=== PATIENT | female | born 1995 | race Caucasian/White ===

== ENCOUNTER 2020-11-11 07:34 | Inpatient (IN) ==
--- NOTE | 2020-11-11 08:03 | History & Physical Report ---
Date of Service November 11, 2020 Assessment & Plan (1) Encounter for induction of labor: 25 y/o 40w7d here for eIOL. Routine . O pos. RI. GBS neg. - induction via pitocin, 2+2 - LR 125/hr - plan for epidural. consult anesthesiology. - plans to breastfeed - covid swab ordered (2) Supervision of normal first : Admission and Anticipated Discharge Date Admission Date: November 11, 2020 History of Present Illness Primary Care Provider: NO PCP Julia Nieves is a 25 y/o 40w7d (LMP) who presents for eIOL. Routine . inconsistent contractions q15min; + movement; - fluid loss; - bloody show Had regular appointments with OB. Labs: (04/02/20) Blood type: O pos Antibody screen: neg Hg: pending (today) Hct: pending (today) WBC: pending (today) Plt: pending (today) Rubella: immune RPR: nonreactive Gonorrhea: not detected Chlamydia: not detected HIV: neg HbSAg: neg GBS: neg (10/07/20) Other screens: 2 hr gtt nl x 2 akh low risk panorama akh GBS negative. ak Allergies Allergy/AdvReac Type Severity Reaction Status Date / Time No Known Allergies Allergy Verified 11/10/20 15:43 Home Medications Medication Instructions Recorded Confirmed Type prenat.vits,zina,pst-qftu-vdros 1 tab PO DAILY 03/25/20 11/11/20 History Patient History Medical History Varicella vaccination Surgical History H/O wisdom tooth extraction Family History Denies family history of Ovarian cancer Breast cancer Colorectal cancer Social History Smoking Status: Never smoker Second Hand Exposure: No; Do You Dip or Chew Tobacco: No; Tobacco Cessation Education Requested by Patient: No Hx Alcohol Use: No Hx Substance Use: No Preferred Language: Cape Verdean Communication Ability: Effective Industrial Controls Technician Required: No Beliefs That Will Affect Care: None marital status: Single marital status details: randy Salcido (24) [phone] Current Living Situation: Significant Other Current Living Situation Comment: lives with Randy current occupational status: employed current occupation: [employer] Other Information That Helps Us Care for You: No Feels Safe at Home: Yes Safety Concerns: Feels Safe At This Time Assistive Devices: Glasses Review of Systems Denies fever, chills, sweats Denies shortness of breath, difficulty breathing, chest pain, palpitations, chest pressure. Denies breast pain. Denies dysuria. Denies headache or changes in vision. Denies nausea/vomiting. Denies numbness, tingling, weakness. Denies calf pain. Denies mood problems. Physical Exam Physical Exam: General: Alert, oriented. No acute distress. Cardiac: Regular rate and rhythm, no murmurs/rubs/gallops. Respiratory: Clear to auscultation bilaterally, no wheezes/rales/rhonchi. No increased work of breathing. Symmetrical chest rise. No respiratory distress. Abdomen: Gravid; Nontender Pelvic: Dilation 4cm; Effacement 80%; Station -2. Soft, mid. EFW 7-8. Exam per Dr. Brunson. Lower Extremities: No lower extremity edema or swelling. No deep calf pain. Autumn's negative bilaterally Results & Data ([facility]) Vital Signs (Past 12 Hours) Vital Signs Pulse BP 11/11/20 07:44 90 126/84 Code Status & VTE Plan Code Status full VTE Prophylaxis Plan VTE Prophylaxis will be ordered: No Monitoring External Monitor External FHT and external uterine monitors used; Category I tracing; moderate FHT variability. Baseline 140bpm. No late or variable decelerations. Tocodynamometer External toco. Contractions q6-8min. Supervising Physician Co-Signing Physician Notes Resident Physician Supervision Note: I interviewed and examined the patient. Discussed with Dr. Dr. Grace and agree with findings and plan as documented in the note. Any exceptions or clarifications are listed here: PLan induction for postdates, covid negative earlier. PLan pitocin, arom when indicated, epidural on demand. Documented By: Adela Brunson MD, FACOG Resident Activity Tracking Resident Involvement: Resident Care Provided Care Provided: OB Delivery
[2020-11-11] MEDS ORDERED: OXYTOCIN 30 UNITS/500 ML BAG IV PRN ×3 (08:39→18:04)
[2020-11-11] MEDS: LACTATED RINGER'S 1,000 ML IV PRN ×2 (09:26→12:08)
[2020-11-11 10:30] LABS: Hematocrit (blood only) 35.3 % (37-47); Hemoglobin 12.2 g/dL (12.0-16.0); Mean Corpuscular Hemoglobin 31.3 pg (25-34); Mean Corpuscular Hgb Conc 34.6 g/dL (32-36); Mean Corpuscular Volume 90.5 fL (80-100); Mean Platelet Volume 10.8 fL (7.4-10.4); Platelet Count 320 K/uL (130-400); RDW Coefficient of Variation 13.3 % (11.5-14.5); White Blood Count 13.53 K/uL (4.8-10.8)
[2020-11-11] MEDS ORDERED: SODIUM CHLORIDE 0.9% PF INJ 10 ML VIAL ONE (11:29)
[2020-11-11] MEDS ORDERED: ePHEDrine sulfate 50 MG/ML AMP ONE (11:29)
[2020-11-11] MEDS ORDERED: fentaNYL citrate PF 100 MCG/2 ML VIAL ONE (11:30)
[2020-11-11] MEDS ORDERED: BUPIVACAINE 0.25% PF 30 ML VIAL ONE (11:30)
[2020-11-11] MEDS ORDERED: fentaNYL 2MCG/ML ROPIVACAINE 1.25MG/ML 100 ML BAG EPI ONE (11:31)
--- NOTE | 2020-11-11 11:49 | Anesthesiology Consultation ---
Date of Service November 11, 2020 Assessment & Plan (1) Encounter for pre-operative examination: Chart Review Chart Review: Acceptable Risk for Labor Epidural History Height/Weight Height: 5 ft 2 in Weight: 92.533 kg Allergies Allergy/AdvReac Type Severity Reaction Status Date / Time No Known Allergies Allergy Verified 11/10/20 15:43 Medications Home Medications Medication Instructions Recorded Confirmed Last Taken prenat.vits,zina,guq-uwka-ewciz 1 tab PO DAILY 03/25/20 11/11/20 11/10/20 20:00 Active Medications Generic Name Dose Route Start Last Admin Trade Name Freq PRN Reason Stop Dose Admin Oxytocin 30 units in 500 mls @ 8 mls/hr 11/11/20 08:39 11/11/20 11:00 Pitocin IV 11/13/20 08:38 0.48 units/hr .Q24H PRN 8 mls/hr Labor Induction/Augmentation Titration Protocol 0.48 UNITS/HR Lactated Ringer's 1,000 mls @ 125 mls/hr 11/11/20 08:39 11/11/20 11:25 Lr IV 11/13/20 08:38 999 mls/hr .Q8H PRN Infusion L&D Protocol Protocol Past Medical History Medical History Varicella vaccination Past Family History Family History Denies family history of Ovarian cancer Breast cancer Colorectal cancer Past Surgical History Surgical History H/O wisdom tooth extraction Social History Smoking Status: Never smoker Do You Dip or Chew Tobacco: No Hx Alcohol Use: No Hx Substance Use: No substance use type: does not use Physical Exam Vital Signs Last Vital Signs Temp 37.0 C 11/11/20 09:32 Pulse 75 11/11/20 11:47 Resp 20 11/11/20 09:32 BP 161/97 H 11/11/20 11:34 Testing Laboratory Results 11/11/20 08:47
[2020-11-11] MEDS ORDERED: ONDANSETRON INJ 2 MG/ML 2 ML VIAL IV PRN (12:22)
[2020-11-11] MEDS ORDERED: ePHEDrine sulfate 50 MG/ML AMP IV PRN (12:22)
[2020-11-11] MEDS ORDERED: fentaNYL 2MCG/ML ROPIVACAINE 1.25MG/ML 100 ML BAG EPI PRN (12:22)
[2020-11-11] MEDS ORDERED: NALOXONE HCL 1 MG in SODIUM CHLORIDE 0.9% 1,000 ML IV PRN (12:22)
[2020-11-11] MEDS ORDERED: NALOXONE HCL 0.4 MG/1 ML VIAL/CARP IV PRN (12:22)
--- NOTE | 2020-11-11 15:40 | Labor Progress Brief Note ---
Date of Service November 11, 2020 Subjective Reason For Note: Routine Evaluation having pressure. Assessment & Plan (1) Encounter for induction of labor: begin 2nd stage. fhts categ 2. pt aware i am covering care for Dr. Brunson at this time. Admission and Anticipated Discharge Date Admission Date: November 11, 2020 Physical Exam Constitutional: WD/WN, vitals as above Genitourinary: Manual OB Exam: + cervical dilation (lip reduced with arom ), + cervical effacement 100%, + station + 2 and + amniotic fluid (AROM) meconium OB Exam Monitor Tracing: + external FHT monitor used (140 mod variability, ), + external uterine monitor used (q2), + category II and + variable decelerations Results & Data ([facility]) Vital Signs (Past 12 Hours) Vital Signs Temp Pulse Resp BP Pulse Ox 11/11/20 15:34 59 L 142/83 H 11/11/20 15:32 60 98 11/11/20 15:27 92 H 100 11/11/20 15:26 57 L 93 11/11/20 15:22 67 98 11/11/20 15:21 66 93 11/11/20 15:19 54 L 144/96 H 11/11/20 15:17 75 99 11/11/20 15:12 56 L 98 11/11/20 15:07 60 99 11/11/20 15:04 60 163/92 H 11/11/20 15:02 100 H 100 11/11/20 14:57 73 98 11/11/20 14:52 63 97 11/11/20 14:51 88 93 11/11/20 14:49 66 173/97 H 11/11/20 14:47 62 97 11/11/20 14:42 95 H 99 11/11/20 14:37 76 99 11/11/20 14:36 98.2 F 20 11/11/20 14:34 61 134/86 11/11/20 14:32 67 99 11/11/20 14:29 68 94 11/11/20 14:27 71 97 11/11/20 14:22 70 97 11/11/20 14:19 68 147/87 H 93 11/11/20 14:17 83 98 11/11/20 14:16 18 11/11/20 14:12 84 97 11/11/20 14:07 84 95 05 14:05 85 137/92 05 14:02 79 98 0519 14:01 18 05 13:58 87 94 05 13:57 70 97 05 13:52 100 H 97 11/11/20 13:49 58 L 133/82 05 13:47 79 96 05 13:45 82 20 94 05 13:42 93 H 97 05 13:40 88 92 05 13:37 86 95 05 13:33 71 135/92 05 13:32 84 94 05 13:31 20 05 13:27 80 95 05 13:26 88 94 05 13:22 78 96 05 13:19 83 135/84 05 13:17 86 96 05 13:16 20 05 13:12 85 97 05 13:11 80 94 05 13:07 84 96 05 13:03 77 127/84 05 13:02 84 95 05 13:01 20 05 12:57 79 95 05 12:52 87 96 05 12:48 84 128/85 05 12:47 85 97 05 12:46 20 05 12:43 87 130/82 05 12:42 78 96 05 12:39 75 135/85 05 12:37 92 H 96 11/11/20 12:33 85 130/88 05 12:32 94 H 97 11/11/20 12:31 83 20 133/85 05 12:29 80 129/85 05 12:27 84 133/85 97 05 12:25 60 135/89 05 12:23 63 132/87 05/ 12:22 73 97 05 12:21 59 L 145/90 H 11/11/20 12:17 61 98 05 12:16 20 11/11/20 12:12 87 100 11/11/20 12:07 92 H 100 11/11/20 12:02 75 98 11/11/20 12:00 20 11/11/20 11:57 88 99 11/11/20 11:52 91 H 98 11/11/20 11:47 75 98 11/11/20 11:34 80 161/97 H 11/11/20 10:35 78 140/88 11/11/20 09:32 98.6 F 20 11/11/20 09:31 85 126/84 11/11/20 07:46 98.4 F 90 20 126/84 11/11/20 07:44 90 126/84 Coding Level of Care Code None Diagnoses Encounter for induction of labor Z34.90
--- NOTE | 2020-11-11 17:59 | Anesthesia Procedure Note ---
Date of Service November 11, 2020 Anesthesia Post Epidural Note Vital Signs Vital Signs: Temp Pulse Resp BP Pulse Ox 36.8 C 100 H 20 132/78 99 11/11/20 14:36 11/11/20 17:49 11/11/20 14:36 11/11/20 17:49 11/11/20 17:38 Pain Intensity Lower Abdomen: Pain Intensity: 10 Notes Mental Status: alert / awake / arousable and participated in evaluation Nausea / Vomiting: adequately controlled Pain: adequately controlled Airway Patency, RR, SpO2: stable & adequate BP & HR: stable & adequate Hydration State: stable & adequate Neuraxial Anesthesia: was administered and sensory block is resolving Anesthetic Complications: no major complications apparent Epidural: Removed without complications and With tip intact
[2020-11-11] MEDS ORDERED: ACETAMINOPHEN 325 MG TAB PO PRN (18:04)
[2020-11-11] MEDS ORDERED: oxyCODONE/ACETAMINOPHEN 5mg/325mg TAB PO PRN (18:04)
--- NOTE | 2020-11-11 18:07 | Delivery Summary ---
Vaginal Delivery Summary Date of Service November 11, 2020 Vaginal Delivery Summary and 2nd Degree LAC The patient dilated to complete and pushed to deliver a viable male infant Apgars 8 and 9 via over 2nd degree perineal laceration. Mouth and nose bulb suctioned at perineum. Shoulders and body delivered with ease. Infant was vigorous and crying at . Cord clamped at 30 seconds of life and to maternal abdomen where the cord was then doubly clamped and cut. Placenta delivered spontaneously and intact, three-vessel cord. Hemostasis achieved with dilute pitocin and uterine massage and drainage of the bladder for approximately 250 cc under sterile conditions. Laceration repaired in usual fashion in layers with 3-0 vicryl. Periclitoral laceration with bleeding asnd reapproximated with 4-0 vicryl for excellent hemostasis. Cervix and sulci intact. EBL 300 cc. Mother and baby stable recovery. [facility] [place] Vaginal Delivery Charge Vaginal Delivery Codes: 83229 global code for the antepartum, delivery, and post- Delivery Type Details: and 2nd Degree LAC
[2020-11-11] MEDS ORDERED: HYDROCORTISONE ACETATE 25 MG SUPP PR PRN (18:20)
[2020-11-11] MEDS ORDERED: BENZOCAINE 20% SPRY 85 APPLN/85 GM CAN EXT PRN (18:20)
[2020-11-11] MEDS ORDERED: DIPHTHERIA/TETANUS/PERTUSSIS Vaccine (Tdap, Age 7+yrs) 0.5mL SYR/VL IM ONE (18:20)
[2020-11-11] MEDS ORDERED: SUPERCREAM 0.870% 15 GM JAR EXT PRN (18:20)
[2020-11-11] MEDS: OXYTOCIN 20 UNITS in LACTATED RINGER'S 1,000 ML IV SCH (19:18)
[2020-11-11] MEDS: DOCUSATE SODIUM 100 MG CAP PO SCH (21:09)
[2020-11-11] MEDS: IBUPROFEN 600 MG TAB PO PRN (22:39)
[2020-11-12] MEDS: IBUPROFEN 600 MG TAB PO PRN ×3 (04:27→23:38)
[2020-11-12 06:22] LABS: Hematocrit (blood only) 30.6 % (37-47); Hemoglobin 10.5 g/dL (12.0-16.0)
--- NOTE | 2020-11-12 07:06 | Obstetrical Progress Note ---
Date of Service <Jeffery Grace MD - Last Filed: 11/12/20 07:25> November 12, 2020 Assessment & Plan <Jeffery Grace MD - Last Filed: 11/12/20 07:25> (1) state: 25 y/o o 40w7d who is s/p on 11/11/20, PPD1. RI. GBS neg. - Doing well, meeting PP milestones - H/H appropriate - HR 90s, acceptable. delivered yesterday evening - continue ambulation, assistance w/ - hemorrhoid cream - Tentative dispo 11/11/20 Subjective <Jeffery Grace MD - Last Filed: 11/12/20 07:25> Ambulation: ambulating normally Voiding: no voiding problems Passing Gas:: Yes Diet Tolerance:: regular diet Lochia:: Small Feeding Type:: breast feeding Current Pain Level(1-10): 2 Will start pumping since not much output via . Review of Systems Denies fever, chills, sweats Denies shortness of breath, chest pain, palpitations. Denies breast pain. Denies dysuria. Denies headache or changes in vision. Denies nausea/vomiting. Denies numbness, tingling, weakness. + hemorrhoids Physical Exam <Jeffery Grace MD - Last Filed: 11/12/20 07:25> General: Alert, oriented. No acute distress. Cardiac: Regular rate and rhythm, no murmurs/rubs/gallops. Respiratory: Clear to auscultation bilaterally, no wheezes/rales/rhonchi. No respiratory distress. Abdomen: , soft, nontender. Uterus: Uterine fundus firm, palpable to right of umbilicus. Lower Extremities: No lower extremity edema or swelling. No deep calf pain. Autumn's negative bilaterally. Results & Data ([facility]) <Jeffery Grace MD - Last Filed: 11/12/20 07:25> Vital Signs (Past 12 Hours) Vital Signs Temp Pulse Pulse Resp BP BP Pulse Ox 11/12/20 04:15 36.8 C 93 H 16 116/75 11/11/20 23:50 37.1 C 97 H 16 113/71 99 11/11/20 21:00 37.0 C 99 H 18 127/84 98 11/11/20 20:03 101 H 127/81 11/11/20 19:49 109 H 129/75 11/11/20 19:33 113 H 131/83 11/11/20 19:18 96 H 132/81 11/11/20 19:04 89 133/78 Medications Administered <Adela Brunson MD, FACOG - Last Filed: 11/12/20 07:49> Co-Signing Physician Notes Resident Physician Supervision Note: I interviewed and examined the patient. Discussed with Dr. Grace and agree with findings and plan as documented in the note. Any exceptions or clarifications are listed here: Doing well, PPD 0/1. Delivered later in the evening yesterday. Recommend d/c tomorrow am as primip and first baby. She is agreeable. Documented By: Adela Brunson MD, FACOG
[2020-11-12] MEDS: DOCUSATE SODIUM 100 MG CAP PO SCH ×2 (08:06→20:14)
[2020-11-12] MEDS: PRENATAL VITAMIN 1 TAB PO SCH (08:06)
[2020-11-12] MEDS: OXYTOCIN 20 UNITS in LACTATED RINGER'S 1,000 ML IV SCH (19:20)
--- NOTE | 2020-11-13 06:20 | Obstetrical Progress Note ---
Date of Service <Jeffery Grace MD - Last Filed: 11/13/20 07:21> November 13, 2020 Assessment & Plan <Jeffery Grace MD - Last Filed: 11/13/20 07:21> (1) state: 25 y/o o 40w7d who is s/p on 11/11/20, PPD2. RI. GBS neg. - Doing well, meeting PP milestones - 11/12 H/H appropriate. No pending labs. - continue ambulation, assistance w/ - hemorrhoid cream - dispo today, instructions reviewed - 6 wk f/u Subjective <Jeffery Grace MD - Last Filed: 11/13/20 07:21> Ambulation: ambulating normally Voiding: no voiding problems Passing Gas:: Yes Diet Tolerance:: regular diet Lochia:: Small Feeding Type:: breast feeding (pumping. plans to exclusively pump) Current Pain Level(1-10): 2 No complaints. Feels ready for home. Review of Systems Denies fever, chills, sweats Denies shortness of breath, chest pain, palpitations. Denies breast pain. Denies dysuria. Denies headache or changes in vision. Denies nausea/vomiting. Denies numbness, tingling, weakness. Denies calf pain. Denies mood complaints. Physical Exam <Jeffery Grace MD - Last Filed: 11/13/20 07:21> General: Alert, oriented. No acute distress. Cardiac: Regular rate and rhythm, no murmurs/rubs/gallops. Respiratory: Clear to auscultation bilaterally, no wheezes/rales/rhonchi. No respiratory distress. Abdomen: , soft, nontender. Uterus: Uterine fundus firm, palpable to right of umbilicus, 0.5cm below. Lower Extremities: No lower extremity edema or swelling. No deep calf pain. Autumn's negative bilaterally. Results & Data ([facility]) <Jeffery Grace MD - Last Filed: 11/13/20 07:21> Vital Signs (Past 12 Hours) Vital Signs Temp Pulse Resp BP Pulse Ox 11/12/20 23:30 36.8 C 86 18 126/87 98 11/12/20 19:45 36.9 C 90 18 117/78 98 Medications Administered <Rosalinda Randall MD, FACOG - Last Filed: 11/13/20 08:47> Co-Signing Physician Notes Resident Physician Supervision Note: I was present with Dr. Grace during the history and exam. I discussed the case with the resident and agree with the findings and plan as documented in the note. Any exceptions or clarifications are listed here: doing well and ready to go home ff 2 down nt, ext nt calves, instructions reviewed, plan 6wk pp check. denies other ?s. rh pos, ri, breastpumping. Documented By: Rosalinda Randall MD, FACOG
[2020-11-13] MEDS: IBUPROFEN 600 MG TAB PO PRN (08:40)
[2020-11-13] MEDS: PRENATAL VITAMIN 1 TAB PO SCH (08:40)
[2020-11-13] MEDS: DOCUSATE SODIUM 100 MG CAP PO SCH (08:40)
== END 2020-11-13 12:55 | disposition home or self-care (01) ==
LOC: 4S1 07:34 → 4S2 21:03

== ENCOUNTER 2022-10-04 08:34 | Inpatient (IN) ==
[2022-10-04] MEDS ORDERED: LIDOCAINE 1% LOCAL 20 ML VIAL INFIL PRN (08:49)
[2022-10-04] MEDS ORDERED: OXYTOCIN 30 UNITS/500 ML BAG IV PRN ×2 (08:49→11:46)
--- NOTE | 2022-10-04 08:51 | History & Physical Report ---
Date of Service October 04, 2022 Assessment & Plan (1) Supervision of normal intrauterine in multigravida: (2) Normal labor: Plan admit. desires epidural. once comfortable , then arom. Plan . Fetus category one. History of Present Illness Chief Complaint: contractions Primary Care Provider: NO PCP Patient is a 27yowf with iup at39 6/7 weeks who presents to labor and delivery with worsening contractions. no lof/vb. +fm. Has been bowen for several days but worsened this am. Seen in the office yesterday and 4cm and Delivery Plans left ovarian cyst simple. - resolved at 30wk OB Labs: Blood Type O Positive 02/24/22 Antibody Screen NEGATIVE 02/24/22 Hemoglobin 12.2 g/dl (12.0-16.0) 07/13/22 Hematocrit 34.2 % (34.1-44.9) 07/13/22 Mean Corpuscular Volume 84.9 fL (80.0-100.0) 02/24/22 Platelet Count 353 K/uL (130-400) 02/24/22 Rubella IgG Antibody Immune (Immune) 02/24/22 Rapid Plasma Reagin Nonreactive (Nonreactive) 02/24/22 Hepatitis B Surface Antigen Neg (Neg) 04/02/20 Hepatitis B Surface Antigen. NON-REACTIVE (NON-REACTIVE) 02/24/22 Hepatitis C Antibody (EIA) NON-REACTIVE (NON-REACTIVE) 02/24/22 HIV (1&2) Ab and P24 Ag, 4th Gener Neg (Neg) 04/02/20 HIV (1&2) Ag and Ab Confirmation NON-REACTIVE (NON-REACTIVE) 02/24/22 Glucose 1 Hour 50 gm Load 102 mg/dl (70-130) 07/13/22 OB Optional Labs: Chlamydia trachomatis RNA NOT DETECTED (NOT DETECTED) 02/24/22 Neisseria gonorrhoeae RNA NOT DETECTED (NOT DETECTED) 02/24/22 Thyroid Stimulating Hormone (TSH) 1.670 uIu/ml (0.300-4.500) 09/05/19 Labs Reviewed: Declines cf/sma--mln gbs negative Allergies Allergy/AdvReac Type Severity Reaction Status Date / Time No Known Allergies Allergy Verified 10/03/22 13:48 Home Medications Medication Instructions Recorded Confirmed Type prenat.vits,zina,ztc-sull-rzyqg 1 tab PO DAILY 03/25/20 10/04/22 History Patient History Medical History (Updated 10/04/22 @ 08:54 by Adela Brunson MD, FACOG) Abdominal pain affecting Varicella vaccination Surgical History H/O wisdom tooth extraction Family History Denies family history of Ovarian cancer Breast cancer Colorectal cancer Social History Smoking Status: Never smoker Second Hand Exposure: No; Hx Alcohol Use: No Hx Substance Use: No Preferred Language: Bermudian Communication Ability: Effective Vocational Adviser Required: No Beliefs That Will Affect Care: None marital status: Single marital status details: Nathaniel Salcido (26) [phone] Current Living Situation: Spouse Current Living Situation Comment: lives with spouse, son, 3 dogs, 1 cat, spouse to change litter. current occupational status: employed current occupation: [employer] Feels Safe at Home: Yes Assistive Devices: Glasses OB History Past Pregnancies Del. Date GA wks Lbr Lgth wt Sex Type del Anes Place Del Prov ? Comment 11/11/20 41 7lb 5.1oz M Epi dural [facility] Dr. Randall No [employer] History noncontributory Physical Exam Constitutional: WD/WN, vitals as above Gastrointestinal (Abdomen): soft, gravid, nt Psychiatric: A+Ox3, euthymic affect Genitourinary: cx--6/90/-2 [id number] efm--130s wtih mod variability, accels to 150s,, no decels Results & Data Vital Signs (Past 12 Hours) Vital Signs Pulse BP 10/04/22 08:38 71 150/93 H Coding Level of Care Code None Diagnoses Supervision of normal intrauterine in multigravida Z34.80 Normal labor O80; Z37.9
[2022-10-04] MEDS: LACTATED RINGER'S 1,000 ML IV PRN ×2 (08:55→10:40)
[2022-10-04 09:17] LABS: Hematocrit (blood only) 34.5 % (37.0-47.0); Mean Corpuscular Hemoglobin 29.6 pg (25.0-34.0); Mean Corpuscular Hgb Conc 34.8 g/dL (32.0-36.0); Mean Corpuscular Volume 85.2 fL (80.0-100.0); Platelet Count 338 K/uL (130-400); RDW Coefficient of Variation 12.2 % (11.5-14.5); RDW Standard Deviation 37.6 fL (36.4-46.3); Red Blood Count 4.05 M/uL (4.20-5.40); White Blood Count 13.54 K/ul (4.8-10.8)
[2022-10-04] MEDS ORDERED: fentaNYL 2MCG/ML ROPIVACAINE 1.25MG/ML 100 ML BAG EPI PRN (09:20)
[2022-10-04] MEDS ORDERED: ePHEDrine sulfate 50 MG/ML AMP IV PRN (09:20)
[2022-10-04] MEDS ORDERED: NALOXONE HCL 0.4 MG/1 ML VIAL/CARP IV PRN (09:20)
[2022-10-04] MEDS ORDERED: NALOXONE HCL 1 MG in SODIUM CHLORIDE 0.9% 1000ML 1,000 ML IV PRN (09:20)
[2022-10-04] MEDS ORDERED: ePHEDrine sulfate 50 MG/ML AMP ONE (09:20)
[2022-10-04] MEDS ORDERED: NALBUPHINE HCL INJ 10 MG/ML AMP IV PRN (09:20)
[2022-10-04] MEDS ORDERED: fentaNYL citrate PF 100 MCG/2 ML VIAL ONE (09:20)
[2022-10-04] MEDS ORDERED: diphenhydrAMINE 50 MG/ML VIAL IV PRN (09:20)
--- NOTE | 2022-10-04 09:20 | Anesthesiology Consultation ---
Date of Service October 04, 2022 Assessment & Plan (1) Encounter for pre-operative examination: Chart Review Chart Review: Patient NOT seen in Pre Admission Testing and Acceptable Risk for Labor Epidural Consults Requested none History Allergies Allergy/AdvReac Type Severity Reaction Status Date / Time No Known Allergies Allergy Verified 10/03/22 13:48 Medications Home Medications Medication Instructions Recorded Confirmed Last Taken prenat.vits,zina,szn-uqpp-crckk 1 tab PO DAILY 03/25/20 10/04/22 09/27/22 Active Medications Generic Name Dose Route Start Last Admin Trade Name Freq PRN Reason Stop Dose Admin Lactated Ringer's 1,000 mls @ 125 mls/hr 10/04/22 08:49 10/04/22 08:55 Lr IV 10/06/22 08:48 999 mls/hr .Q8H PRN Administration L&D Protocol Protocol Past Medical History Medical History Abdominal pain affecting Varicella vaccination Past Family History Family History Denies family history of Ovarian cancer Breast cancer Colorectal cancer Past Surgical History Surgical History H/O wisdom tooth extraction Social History Smoking Status: Never smoker Hx Alcohol Use: No Hx Substance Use: No substance use type: does not use Physical Exam Vital Signs Last Vital Signs Pulse 84 10/04/22 09:09 BP 131/93 10/04/22 09:09 Testing Laboratory Results 10/04/22 09:01
[2022-10-04] MEDS ORDERED: fentaNYL 2MCG/ML ROPIVACAINE 1.25MG/ML 100 ML BAG EPI ONE (09:21)
[2022-10-04] MEDS ORDERED: LIDOCAINE 2%/EPINEPHRINE 1:200,000 20 ML PF ONE (09:21)
[2022-10-04] MEDS ORDERED: SODIUM CHLORIDE 0.9% PF INJ 10 ML VIAL ONE (09:21)
[2022-10-04] MEDS ORDERED: BUPIVACAINE 0.25% PF 30 ML VIAL ONE (09:21)
[2022-10-04 09:33] LABS: Alanine Aminotransferase 7 U/L (7-52); Albumin Globulin Ratio 1.2 (0.9-2); Albumin Level 3.4 gm/dl (3.4-5.0); Alkaline Phosphatase 159 U/L (34-104); Anion Gap 9 (3-11); Aspartate Aminotransferase 11 U/L (13-39); BUN Creatinine Ratio 8.5 (10-20); Bilirubin,Total 0.4 mg/dl (0.2-1.0); Blood Urea Nitrogen 4 mg/dl (6-23); Calcium 9.5 mg/dl (8.6-10.3); Carbon Dioxide 20 mmol/L (21-32); Chloride 109 mmol/L (98-107); Creatinine Clr Calc Pharmacy 183.3 ml/min; Est GFR (African American) > 150.0 ml/min; Est GFR (Non-African American) 137.3 ml/min; Globulin 2.8 gm/dl (2.5-4.0); Glucose 84 mg/dl (70-99(Fasting)); Potassium 3.5 mmol/L (3.5-5.1); Sodium 138 mmol/L (136-145); Total Protein 6.2 gm/dl (6.0-8.3)
--- NOTE | 2022-10-04 10:42 | Labor Progress Brief Note ---
Date of Service October 04, 2022 Subjective comfortable after epidural Assessment & Plan (1) Normal labor: Plan expectant management. fetus category one. anticipate . Admission and Anticipated Discharge Date Admission Date: October 04, 2022 Physical Exam Physical Exam: cx--7/100/-2 arom--clear toco--q2-3 min efm--130s with mod variability, accels to 150s no decels Results & Data Vital Signs (Past 12 Hours) Vital Signs Pulse BP Pulse Ox 10/04/22 10:06 65 121/84 10/04/22 10:35 96 10/04/22 10:35 73 10/04/22 10:32 76 10/04/22 10:32 125/82 10/04/22 10:30 97 10/04/22 10:30 86 10/04/22 10:25 96 10/04/22 10:25 80 10/04/22 10:20 95 10/04/22 10:20 82 10/04/22 10:18 82 10/04/22 10:18 123/81 10/04/22 10:15 97 10/04/22 10:15 81 10/04/22 10:10 96 10/04/22 10:10 73 10/04/22 10:01 65 10/04/22 10:01 121/84 10/04/22 09:59 100 10/04/22 09:59 71 10/04/22 09:54 98 10/04/22 09:54 75 10/04/22 09:49 99 10/04/22 09:49 71 10/04/22 09:46 65 10/04/22 09:46 118/81 10/04/22 09:44 99 10/04/22 09:44 74 10/04/22 09:43 71 10/04/22 09:43 126/90 10/04/22 09:39 99 10/04/22 09:39 71 10/04/22 09:40 64 10/04/22 09:40 130/87 10/04/22 09:37 80 10/04/22 09:37 135/92 10/04/22 09:34 100 10/04/22 09:34 80 10/04/22 09:34 76 10/04/22 09:34 134/91 10/04/22 09:30 69 10/04/22 09:30 138/101 H 10/04/22 09:29 100 10/04/22 09:29 70 10/04/22 09:24 100 10/04/22 09:24 78 10/04/22 09:19 71 10/04/22 09:19 125/89 10/04/22 09:09 84 10/04/22 09:09 131/93 10/04/22 08:59 74 10/04/22 08:59 129/91 10/04/22 08:38 71 150/93 H Coding Level of Care Code None Diagnoses Normal labor O80; Z37.9
[2022-10-04] MEDS ORDERED: bisacodyL 10 MG SUPP PR PRN (11:46)
[2022-10-04] MEDS ORDERED: ACETAMINOPHEN 325 MG TAB PO PRN (11:46)
[2022-10-04] MEDS ORDERED: BENZOCAINE 20% AER SPR 82.5 GM CAN EXT PRN (11:46)
[2022-10-04] MEDS ORDERED: HYDROCORTISONE ACETATE 25 MG SUPP PR PRN (11:46)
[2022-10-04] MEDS ORDERED: DIPHTHERIA/TETANUS/PERTUSSIS 0.5mL SYR/VIAL (Age 7+yrs) IM ONE (11:46)
--- NOTE | 2022-10-04 12:02 | Delivery Summary ---
Vaginal Delivery Summary Date of Service October 04, 2022 Vaginal Delivery Summary and 2nd Degree LAC Pre-operative Diagnosis: at 39 6/7 weeks active labor Post-operative Diagnosis: same Procedure: epidural arom second degree laceration with repair EBL: 300cc Anesthesia: epidural Procedure: The patient presented to labor and delivery in active labor. underwent epidural and arom for clear fluid. The patient was shortly thereafter straight cathed and had a decel to the 70s. Was checked before cath and was 8cm. The patient was turned side to side and into knee chest. Was found to be c/c/+1. The patient was turned to her back and then pushed for 3 contractions to deliver a viable male in doa position with a Ritgen maneuver. The rest of the was then delivered without difficulty after reducing a loose nuchal cord. The baby was immediately vigorous. The nose and mouth were bulb suctioned and the was placed in the maternal abdomen for drying and attention. Cord was clamped and cut at one minute of life. Cord blood and segment obtained. Placenta delivered spontaneous, intact with a three vessel cord. Cervix/sulci/rectum were intact. A second degree perineal laceration was repaired in the normal standard fashion. Hemostasis obtained with dilute pitocin and fundal massage. Apgars were 8/9. Mother and baby doing well at the end of the delivery. [facility] [place] Vaginal Delivery Charge Delivery Type Details: and 2nd Degree LAC
--- NOTE | 2022-10-04 13:59 | Anesthesia Procedure Note ---
Date of Service October 04, 2022 Anesthesia Post Epidural Note Vital Signs Vital Signs: Temp Pulse Resp BP Pulse Ox 98.2 F 90 18 130/75 96 10/04/22 08:50 10/04/22 13:46 10/04/22 12:45 10/04/22 13:46 10/04/22 12:05 Pain Intensity Abdomen: Pain Intensity: 4 Notes Mental Status: alert / awake / arousable and participated in evaluation Nausea / Vomiting: adequately controlled Pain: adequately controlled Airway Patency, RR, SpO2: stable & adequate BP & HR: stable & adequate Hydration State: stable & adequate Neuraxial Anesthesia: was administered and sensory block is resolving Anesthetic Complications: no major complications apparent and Pt Satisfied with anesthetic care Epidural: Removed without complications and With tip intact
[2022-10-04] MEDS: IBUPROFEN 600 MG TAB PO PRN (20:16)
[2022-10-04] MEDS: DOCUSATE SODIUM 100 MG CAP PO SCH (20:16)
--- NOTE | 2022-10-05 05:46 | Obstetrical Progress Note ---
Date of Service October 05, 2022 Assessment & Plan (1) Encounter for pre-operative examination: (2) Normal labor: (3) Supervision of normal intrauterine in multigravida: Sully Dumont is a 27 yo who is PPD#1 following at 40w. -Meeting all milestones -Vitals reviewed and WNL, hemoglobin stable -O+/GBS negative/Rubella immune -Follow up in 6 weeks for appointment -Continue routine care -Plan for d/c later today Admission and Anticipated Discharge Date Admission Date: October 04, 2022 Supervising Physician Co-Signing Physician Notes Resident Physician Supervision Note: I interviewed and examined the patient. Discussed with Dr. Raymundo and agree with findings and plan as documented in the note. Any exceptions or clarifications are listed here: Doing well. Desires d/c. Instructions given. Desires supercream. She notes that she has some decreased sensation/slight discomfort bilaterally below the knee. suspect from rapid delivery and movement during delivery. Not localizing. Reassured. To let us know if different. Documented By: Adela Brunson MD, FACOG Subjective Julia is a 27 y/o female who is PPD #1 following delivery at 40 weeks. She reports feeling well overall this morning. Has abdominal cramping and vaginal soreness, pain well managed on analgesics. Voiding without issue. Tolerating meals overnight and able to ambulate some. Has some persistent lochia with some improvement this morning. Currently breast feeding/pumping. Review of Systems Constitutional: no fever, no chills and no sweats Respiratory: no cough, no dyspnea and no wheezing Cardiovascular: no chest pain, no palpitations and no calf pain Genitourinary: no dysuria Neurologic: no headache(s) Physical Exam Constitutional: WD/WN, vitals as above no acute distress Respiratory: no respiratory distress Auscultation: lungs clear to auscultation bilaterally; no rales, no rhonchi and no wheezes Cardiovascular: RRR, no murmur, no edema Extremities: no calf tenderness and no edema Negative Autumn's sign bilaterally. Gastrointestinal (Abdomen): Inspection/Auscultation: normal bowel sounds Genitourinary: Uterine fundus firm, palpable below the umbilicus. Results & Data Vital Signs (Past 12 Hours) Vital Signs Temp Pulse Resp BP Pulse Ox O2 Del Method 10/05/22 03:30 36.6 C 79 16 123/82 98 Room Air 10/04/22 23:59 36.7 C 67 16 126/80 98 Room Air 10/04/22 21:37 36.8 C 57 L 16 130/85 97 Room Air Resident Activity Tracking Resident Involvement: Resident Care Provided Care Provided: OB Delivery
[2022-10-05 07:17] LABS: Hematocrit (blood only) 31.7 % (37.0-47.0); Hemoglobin 10.8 g/dl (12.0-16.0); Mean Corpuscular Hemoglobin 29.5 pg (25.0-34.0); Mean Corpuscular Hgb Conc 34.1 g/dL (32.0-36.0); Mean Corpuscular Volume 86.6 fL (80.0-100.0); Platelet Count 276 K/uL (130-400); RDW Coefficient of Variation 12.4 % (11.5-14.5); RDW Standard Deviation 39.4 fL (36.4-46.3); Red Blood Count 3.66 M/uL (4.20-5.40); White Blood Count 11.66 K/ul (4.8-10.8)
[2022-10-05] MEDS: IBUPROFEN 600 MG TAB PO PRN (07:25)
[2022-10-05] MEDS: DOCUSATE SODIUM 100 MG CAP PO SCH (07:25)
[2022-10-05] MEDS ORDERED: PRENATAL VITAMIN 1 TAB PO SCH (08:00)
[2022-10-05] MEDS ORDERED: bisacodyL 5 MG TABEC PO SCH (20:00)
== END 2022-10-05 15:10 | disposition home or self-care (01) | DRG 807 ==
LOC: OPB 08:34 → 4S1 08:35 → 4E2 16:34